=== PATIENT | female | born 1945 | race Caucasian/White ===

== ENCOUNTER 2020-02-26 14:40 | Outpatient (CLI) | payer MEDICARE ==
--- NOTE | 2020-02-26 14:53 | RAD ---
PA AND LATERAL CHEST: HISTORY: Shortness of breath. FINDINGS: Heart size is within normal limits. Aorta is tortuous with atherosclerotic change. There are some c hronic lung changes present. There is a hiatal hernia noted. IMPRESSION: Chronic lung change. No acute findings. POS: OFF
== END 2020-02-26 14:41 | disposition home or self-care (01) ==
LOC: RAD-FRANK 14:40
PROVIDERS: ATTEND Nurse Practitioner Family
DX: R06.02 Shortness of breath (principal)
CPT/HCPCS: 71046

== ENCOUNTER 2024-03-06 09:09 | Outpatient (CLI) | payer MEDICARE | END 2024-03-06 09:10 | disposition home or self-care (01) | LOC: RAD 09:09 | PROVIDERS: ATTEND Internal Medicine Critical Care Medicine | DX: R06.00 Dyspnea, unspecified (principal) | CPT/HCPCS: 71046 ==

== ENCOUNTER 2024-03-21 11:00 | Outpatient (CLI) | payer MEDICARE | END 2024-03-21 11:01 | disposition home or self-care (01) | LOC: PET 11:00 | PROVIDERS: ATTEND Internal Medicine Critical Care Medicine | DX: R91.8 Other nonspecific abnormal finding of lung field (principal) | CPT/HCPCS: 78815; A9552 ==

== ENCOUNTER 2024-10-12 12:30 | Outpatient (CLI) | payer MEDICARE, OTHER | END 2024-10-12 12:31 | disposition home or self-care (01) | LOC: PET 12:30 | PROVIDERS: ATTEND Radiology Radiation Oncology | DX: R91.8 Other nonspecific abnormal finding of lung field (principal) | CPT/HCPCS: 78815; A9552 ==

== ENCOUNTER 2025-01-08 09:27 | Emergency (ER) | payer MEDICARE, OTHER ==
[2025-01-08] MEDS ORDERED: Iopamidol-370 76% 500 ML MDV (1 ML CHARGE) ONE (09:50)
[2025-01-08 10:19] LABS: Actual Bicarbonate (HCO3v) 21.9 mEq/L (22-28); Analyzer IN Cardio ER; Base Excess -3.3 mEq/L (-2.0 to +3.0); Calcium, Ionized (venous) 1.21 mmol/L (1.16-1.32); Chloride (VBG) 99 mmol/L (98-106); Hematocrit-VBG 21 % (36.0-47.0); Hemoglobin (Hb) 7.2 g/dL (11.7-16.1); Potassium (VBG) 4.45 mmol/L (3.70-5.30); Sodium 131 mmol/L (133-146)
[2025-01-08 10:22] LABS: #Basophils Less than 0.03 10x3/uL (0.0-0.2); #Eosinophils Less than 0.03 10x3/uL (0.0-0.7); #Monocytes 0.84 10x3/uL (0.11-0.59); #Neutrophils 10.84 10x3/uL (1.40-6.50); %Basophils 0.2 % (0.0-1.0); %Eosinophils 0.1 % (0.0-10.0); %Lymphocytes 2.5 % (21.0-51.0); %Monocytes 6.9 % (0.0-10.0); %Neutrophils 89.3 % (42.0-75.0); Hematocrit 19.6 % (36.0-47.0); Hemoglobin 6.2 g/dL (12.0-16.0); Mean Corpuscular Hemoglobin 30.2 pg (27.0-31.0); Mean Corpuscular Volume 95.6 fL (78.0-98.0); Platelet Count 161 10x3/uL (130-400); Red Blood Cell (RBC) Count 2.05 mill/uL (4.20-5.40); White Blood Cell (WBC) Count 12.13 10x3/uL (4.8-10.8)
[2025-01-08 10:39] LABS: ALT (SGPT) 8 U/L (Less than 34); AST (SGOT) 16 U/L (11-34); Albumin 2.4 g/dL (3.1-4.5); Alkaline Phosphatase 60 U/L (40-110); Anion Gap 15 mmol/L (10-20); BUN (Urea Nitrogen) 66 mg/dL (9.8-20.1); Bilirubin, Total 0.4 mg/dL (0.3-1.2); Calc. Creatinine Clearance 0 mL/min (70-130); Calcium 9.3 mg/dL (7.8-10.44); Carbon Dioxide 23 mmol/L (23-31); Chloride 101 mmol/L (98-107); Globulin 3.3 g/dL (2.4-3.5); Glucose 136 mg/dL (83-110); Magnesium 1.6 mg/dL (1.6-2.6); Potassium 4.6 mmol/L (3.5-5.1); Sodium 134 mmol/L (136-145)
[2025-01-08 10:44] LABS: INR-International Normal Ratio 1.2; Prothrombin Time 15.0 sec (12.0-14.7)
[2025-01-08 10:45] LABS: PTT 36.8 sec (22.9-36.1)
[2025-01-08] MEDS ORDERED: Cefepime 2 GM VIAL ONE (11:40)
[2025-01-08] MEDS ORDERED: Tranexamic Acid 1,000 MG/10 ML VIAL ONE (11:40)
== END 2025-01-08 13:07 | disposition short-term general hospital (02) ==
LOC: ERS 09:27
DX: T82.330A Leakage of aortic (bifurcation) graft (replacement), initial encounter (principal); K92.2 Gastrointestinal hemorrhage, unspecified; J94.2 Hemothorax; D50.0 Iron deficiency anemia secondary to blood loss (chronic); R04.0 Epistaxis; J44.9 Chronic obstructive pulmonary disease, unspecified; I48.91 Unspecified atrial fibrillation; I10 Essential (primary) hypertension; I25.10 Atherosclerotic heart disease of native coronary artery without angina pectoris; Z55.6 Problems related to health literacy
CPT/HCPCS: 36430; 70450; 71045; 71275; 74174; 80053; 82805; 83605; 83735; 83880; 84484; 85025; 85610; 85730; 86850; 86900; 86901; 86920; 93005; 96361; 96365; 96375; 99285; J0692; P9016; Q9967